=== PATIENT | female | born 1965 | race Two or more races ===

== ENCOUNTER 2022-08-29 06:02 | Day surgery (SDC) | payer MEDICAID ==
[2022-08-27 08:43] LABS: Basophils # (auto) 0.1 10 ^3/uL (0-0.2); Basophils % (auto) 0.7 % (0.0-2.0); Eosinophils # (auto) 0.1 10 ^3/uL (0-0.8); Eosinophils % (auto) 0.7 % (0.0-7.0); Hematocrit 41.3 % (36.0-46.0); Hemoglobin 14.4 g/dL (12.2-16.2); Lymphocytes # (auto) 2.5 10 ^3/uL (0.4-5.4); Lymphocytes % (auto) 31.1 % (10.0-50.0); Mean Corpuscular Hemoglobin 30.4 pg (28.0-32.0); Monocytes # (auto) 0.7 10 ^3/uL (0-1.3); Monocytes % (auto) 8.4 % (0.0-12.0); Neutrophils # (auto) 4.7 10 ^3/uL (1.6-8.6); Neutrophils % (auto) 59.1 % (37.0-80.0); Nucleated Red Blood Cells % 0.3 %; Red Blood Cells 4.75 10^6/uL (4.0-5.20); Red Cell Distribution Width 12.6 % (11.8-14.3)
[2022-08-27 08:57] LABS: INR 0.95 (0.9-1.15); Partial Thromboplastin Time 23.6 sec (24.6-33.4)
[2022-08-27 09:09] LABS: Urine Bacteria FEW /hpf (None Seen); Urine Blood Negative /uL (Negative); Urine Mucus FEW (None Seen); Urine Specific Gravity 1.028 (1.001-1.035); Urine WBC 28 /hpf (0 - 5)
[2022-08-27 10:03] LABS: Potassium 4.2 mmol/L (3.5-5.1)
[2022-08-27 10:13] LABS: Albumin 3.2 g/dL (3.4-5.0); BUN/Creatinine Ratio 21.8 (10.0-20.0); Bilirubin, Total 1.5 mg/dL (0.2-1.0); Calcium 9.4 mg/dL (8.5-10.1); Total Protein 7.4 g/dL (6.4-8.2)
[~2022-08-29] VITALS: Ht 162.6 cm; Wt 74.8 kg
[~2022-08-29 06:02] MED LIST: GLIP5TAB12 PO; LOSA25TA38 PO
[2022-08-29] MEDS ORDERED: KETAMINE 50mg/ML 10ml Vial (500mg/10ml) IV ONE (06:03)
[2022-08-29] MEDS ORDERED: ceFAZolin 1GM/50ML 100 ML IV ONE (06:35)
[2022-08-29] MEDS ORDERED: LIDOCAINE W/ EPINEPHRINE 1% 20ML VIAL ONE (06:52)
[2022-08-29] MEDS ORDERED: BUPIVACAINE 0.25% INJ 50ML VIAL ONE (06:52)
[2022-08-29] MEDS ORDERED: POVIDONE IODINE 10 % TOPICAL OINT 30GM TOP ONE (07:01)
[2022-08-29] MEDS ORDERED: MIDAZOLAM HCL 2MG/2ML 2ml VIAL (1mg/ml) ONE (07:30)
[2022-08-29] MEDS ORDERED: GLYCOPYRROLATE 0.2 MG/ML 1ML VIAL ONE (07:30)
[2022-08-29] MEDS ORDERED: KETOROLAC TROMETH 30 MG/ML 1ML VIAL ONE (07:30)
[2022-08-29] MEDS ORDERED: fentaNYL CITRATE 100 MCG/2 ML VL ONE (07:30)
[2022-08-29] MEDS ORDERED: LIDOCAINE 2% (LOCAL ANESTH.) PF 5ml SDV ONE (07:30)
[2022-08-29] MEDS ORDERED: PROPOFOL 10 MG/ML 20 ML IV ONE (07:30)
[2022-08-29] MEDS ORDERED: FAMOTIDINE (10MG/ML) 2ML VL IV ONE (07:35)
[2022-08-29] MEDS ORDERED: MEPERIDINE HCL (50 MG/ML) 1 ML VIAL ONE (07:51)
[2022-08-29] MEDS ORDERED: ACCU-CHEK COMFORT CURVE STRIP VI ONE (08:30)
[2022-08-29] MEDS ORDERED: HYDROmorphone HCL 2 MG/ML VL/or syr IV PRN (08:30)
[2022-08-29] MEDS ORDERED: ONDANSETRON HCL 4 MG/2 ML VIAL IV PRN (08:30)
[2022-08-29 09:30] VITALS: BP 122/62
== END 2022-08-29 09:51 | disposition home or self-care (01) ==
LOC: SUR 06:02
PROVIDERS: ATTEND Surgery
DX: D17.1 Benign lipomatous neoplasm of skin and subcutaneous tissue of trunk (principal); D48.1 Neoplasm of uncertain behavior of connective and other soft tissue; I10 Essential (primary) hypertension; E11.9 Type 2 diabetes mellitus without complications; Z79.899 Other long term (current) drug therapy; Z98.890 Other specified postprocedural states; Z79.84 Long term (current) use of oral hypoglycemic drugs; Z20.822 Contact with and (suspected) exposure to COVID-19
CPT/HCPCS: 22903; 36415; 80053; 81001; 82962; 85025; 85610; 85730; 88305; J0690; J1885; J2001; J2175; J2250; J2704; J3010; J3490; U0003

== ENCOUNTER 2024-08-23 13:03 | Emergency (ER) | payer MEDICAID ==
[~2024-08-23] VITALS: Ht 162.6 cm; Wt 79.7 kg
[~2024-08-23 13:03] MED LIST changes: -GLIP5TAB12 PO; +GLIP5TAB21 PO; +LOSA-533 PO; -LOSA25TA38 PO
--- NOTE | 2024-08-23 14:06 | ED.PDOC ---
HPI (NEURO) HPI Comments 59 year old female presents to the ED with chief complaint of headache and excess sleepiness. Patient reports that she has been experiencing a constant headache for the past 2 weeks along with associated excess sleepiness during the day, even while performing activities. Patient relays that she will sometimes fall asleep in the middle of talking to someone or when standing up. Patient states she had seen her PCP for this concern and was told to follow up in one month as it may be due to her DM and needing to control her blood sugar. Patient denies any N/V/D, chest pain, dizziness, numbness, weakness, SOB, or LOC. Chief Complaint: Headache Time Seen by MD: 14:01 Primary Care Provider: MCCARTY Reviewed Notes: Nurses Notes, Medications, Allergies Information Source: Patient Mode of Arrival: Ambulatory Severity: Moderate Dizziness/Weakness Severity: Unable to do activities Headache Severity: Moderate Timing: Weeks Duration: Since onset Prehospital treatment: None Headache Quality: Aching Headache Location: Generalized Weakness Location: Generalized Onset: At rest, With light exertion Circumstances: Spontaneous History of: DM, Hypertension Modifying factors: Nothing Past Medical History PAST MEDICAL HISTORY: DM, HTN Surgical History: Denies all surgeries HELPER/DRIVER History: Denies all HELPER/DRIVER Hx Family History Family History: Reviewed,noncontributory to illness Social History Smoker: Non-Smoker Alcohol: Denies ETOH Use Drugs: Denies Drug Use Lives In: Home Constitutional: reports: weakness; denies: chills, diaphoresis, fatigue, fever, malaise, sweats, others EENTM: denies: blurred vision, double vision, ear bleeding, ear discharge, ear drainage, ear pain, ear ringing, eye pain, eye redness, hearing loss, mouth pain, mouth swelling, nasal discharge, nose bleeding, nose congestion, nose pain, photophobia, tearing, throat pain, throat swelling, voice changes, others Respiratory: denies: cough, hemoptysis, orthopnea, SOB at rest, shortness of breath, SOB with excertion, stridor, wheezing, others Cardiovascular: denies: chest pain, dizzy spells, diaphoresis, Dyspnea on exertion, edema, irregular heart beat, left arm pain, lightheadedness, palpitations, PND, syncope, others Gastrointestinal: denies: abdomen distended, abdominal pain, blood streaked bowels, constipated, diarrhea, dysphagia, difficulty swallowing, hematemesis, melena, nausea, poor appetite, poor fluid intake, rectal bleeding, rectal pain, vomiting, others Genitourinary: denies: abnormal vagina bleeding, burning, dyspareunia, dysuria, flank pain, frequency, hematuria, incontinence, pain, , vagina discharge, urgency, others Neurological: reports: headache, others (Drowziness); denies: dizziness, fainting, left sided numbness, left sided weakness, numbness, paresthesia, pre- existing deficit, right sided numbness, right sided weakness, seizure, speech problems, tingling, tremors, weakness Musculoskeletal: denies: back pain, gout, joint pain, joint swelling, muscle pain, muscle stiffness, neck pain, others Integumetry: denies: bruises, change in color, change in hair/nails, dryness, laceration, lesions, lumps, rash, wounds, others Allergic/Immunocompromised: denies: Difficulty Healing, Frequent Infections, Hives, Itching, others Hematologic/Lymphatic: denies: anemia, blood clots, easy bleeding, easy bruising, swollen glands, others Endocrine: denies: excessive hunger, excessive sweating, excessive thirst, excessive urination, flushing, intolerance to cold, intolerance to heat, unexplained weight gain, unexplained weight loss, others Psychiatric: denies: anxiety, bipolar disorder, depression, hopeless, panic disorder, schizophrenia, sleepless, suicidal, others All Other Systems: Reviewed and Negative Physical Exam General Appearance: Moderate Distress, Normal HEENT: Normal ENT Inspection, PERRL/EOMI Neck: Full Range of Motion, Non-Tender, Normal, Normal Inspection Respiratory: Chest Non-Tender, Lungs Clear, No Accessory Muscle Use, No Respir atory Distress, Normal Breath Sounds Cardiovascular: No Edema, No JVD, No Murmur, No Gallop, Normal Peripheral Pulses, Regular Rate/Rhythm Breast Exam: Deferred Gastrointestinal: No Organomegaly, Non Tender, No Pulsatile Mass, Normal Bowel Sounds, Soft Genitalia: Deferred Pelvic: Deferred Rectal: Deferred Extremities: No calf tenderness, Normal capillary refill, Normal inspection, Normal range of motion, Non-tender, No pedal edema Musculoskeletal : Apperance: Normal Neurologic: Alert, 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 Was a procedure done?: No Differential Diagnosis (SZ) Seizure: Psychogenic Seizure, Closed Head Injury, CVA/TIA X-Ray, Labs, Meds, VS Vital Signs Date Time Temp Pulse Resp B/P (MAP) Pulse Ox O2 Delivery O2 Flow Rate FiO2 08/23/24 13:08 97.8 80 17 199/70 (113) 98 97.8 Patient alert. Came in because of headache. Has been having these symptoms on and off for few weeks. Vitals stable. Answering questions. Blood pressure slightly elevated. Was given clonidine. She is not septic pain She is not in DKA. Blood pressure is probably causing the headache. CT of the head reviewed does not show any acute process. She does have sinusitis. Was given prescription of Augmentin antibiotic. Reviewed her history. Explained to the patient. Was told to follow up with her primary care physician. Was told to come back if there is any problem. Time of 1ST Reevaluation: 15:01 Reevaluation 1ST: Unchanged Patient Education/Counseling: Diagnosis, Treatment Family Education/Counseling: No Family Present Additional Information Previous visit documents reviewed: The following tests were ordered, and results were reviewed by me: Additional Information was gathered from interviewing the following independent historians: I reviewed and agreed with the following test results read by other providers: I discussed treatment and results with medical personnel and: Patient Comprehensive systems review obtained and negative except for what is stated in the HPI. Departure 1 Departure Time of Disposition: 14:13 Impression: Primary Impression: Autonomic disorder Additional Impressions: Hypertension Qualified Codes: I10 - Essential (primary) hypertension Headache Qualified Codes: R51.9 - Headache, unspecified Sinusitis Qualified Codes: J01.10 - Acute frontal sinusitis, unspecified Disposition: 01 HOME / SELF CARE / HOMELESS Condition: Good e-Prescriptions Amoxicillin & Pot Clavulanate (Augmentin) 500 Mg Tab 1 TAB PO BID for 7 Days, #14 TAB Prov: LURDES VARELA MD 08/23/24 Critical Care Note Critical Care Time?: No Stability Stability form required: No Heart Score Heart Score: Heart Score Response (Comments) Value History N/A 0 EKG N/A 0 Age N/A 0 Risk Factors N/A 0 Troponin N/A 0 Total 0 I personally scribed for LURDES VARELA MD ([email or web address]) on 08/23/24 at 14:06. Electronically submitted by Richie Marie ([email or web address]). LURDES VARELA MD Aug 23, 2024 14:06
--- NOTE | 2024-08-23 14:30 | DVH ---
EXAM: CT HEAD WITHOUT CONTRAST INDICATION: headache TECHNIQUE: CT of the head without intravenous contrast. Radiation Dose Information: CT Dose: CTDI volume is 51.32 mGy. Dose-length product is 822.77 mGy*cm The dose indicators for CT are the volume Computed Tomography (CT) Dose Index (CTDIvol) and the Dose Length Product (DLP), and are measured in units of mGy and mGy-cm, respectively. These indicators are not patient dose, but values generated from the CT scanner acquisition factors. The report includes radiation exposure data for exposures received during this examination. COMPARISON: None FINDINGS: There is no evidence of acute intracranial hemorrhage, extra-axial collection, mass effect, midline s hift, herniation or hydrocephalus. The ventricles, sulci and cisterns are age appropriate. The marroquin-white differentiation is intact. Patchy periventricular and subcortical white matter hypoattenuation is nonspecific but may be related to small vessel ischemic disease. Minimal mucosal thickening right maxillary and ethmoid sinuses and mastoid air cells are clear. The surrounding soft tissues and osseous structures are unremarkable. IMPRESSION: 1. No intracranial hemorrhage. 2. Minimal mucosal thickening of the right maxillary and ethmoid sinuses. Mastoid air cells are clear . 3. No CT findings of territorial ischemia. HS:Y
[2024-08-23] MEDS ORDERED: AMOX500T86 PO (14:51)
[2024-08-23] MEDS: cloNIDine HCL 0.1 MG TAB PO ONE (14:53)
[2024-08-23 15:15] VITALS: BP 153/80; PULSE 68; RESP 20; TEMP 98.6; O2SAT 97
== END 2024-08-23 15:17 | disposition home or self-care (01) ==
LOC: ER 13:03
DX: G90.9 Disorder of the autonomic nervous system, unspecified (principal); I10 Essential (primary) hypertension; R51.9 Headache, unspecified; J32.9 Chronic sinusitis, unspecified; E11.9 Type 2 diabetes mellitus without complications
CPT/HCPCS: 70450